=== PATIENT | male | born 1995 | race Caucasian/White ===

== ENCOUNTER 2023-01-29 13:32 | Emergency (ER) | payer MEDICAID, SELFPAY ==
[2023-01-29 13:41] VITALS: BP 146/83; PULSE 89; RESP 17; TEMP 36.8; O2SAT 97
--- NOTE | 2023-01-29 13:43 | ED.GENADUL_ITS ---
Discharge Plan Disposition Patient Disposition: Home Condition: Good Discharge Details Clinical Impression: URI (upper respiratory infection) Primary Care Provider: None,None ED Provider: Taylor Valero Discharge Instructions Instructions: Upper Respiratory Infection (ED) Additional Instructions: As we discussed, your exam is reassuring here today. This is likely a viral illness. Please continue to encourage hydration. Tylenol and ibuprofen as needed for discomfort. Please try to cut back on how much ibuprofen you are using as this may be contributing to some of your acid reflux and stomach discomfort. You may continue with the omeprazole and augment with Mylanta as needed for symptomatic relief. Please follow-up with primary care in 1 week for reevaluation. Please wash your hands and wear mask when out to help prevent spread of illness. If you develop any new or worsening symptoms please seek care urgently once again. Stand Alone Forms: Work Release Medical Decision Making Patient is a pleasant 27 year old male presenting today with c/c of sore throat, nasal congestion, cough, that began 2 days ago. While he felt warm at home he denies fevers. No SOB, CP. Has enlarged lymphnodes. Reports he ahs poor dentition, scheduled to see dentist but denies increased dental pain. No sinus pain. No GI upset. Reports general malaise. On exam, patient appears nontoxic. Posterior oropharynx is erythematous but no signficant swelling. Rapid strep negative. Submandibular lymphadenopathy. No tracheal deviation, no lymphadenopathy at cervical region. Lungs are clear, normal cardiac exam. Normal ear exam, he did report left sided ear pain. Advised likely viral URI. No evidence of bacterial infection at this point. Appears well hydrated. He also reports that his acid reflux has been increased, particularly with spicy or acidic foods. He has started omeprazole 2 days ago. He has been on 800mg Ibuprofen 3-4x per day per his dentist. Advised that he cut back, may use APAP. Will give dose of mylanta to help with acute discomfort. We discussed supportive care and I encouraged close f/u with PCP. Work note given. Encouraged hydration. All of his quesitons and concerns were addressed, he is in agreement with this plan. HPI General Date/Time Provider Initiated Documentation: 01/29/23 13:42 . Limitations to Documentation: no limitations . Information obtained by: patient and RN notes reviewed . History of Present Illness 27 year old M presents to the emergency department with the chief complaint of sore throat, congestion, cough, sore lymphnodes, described as mild, with intensity rated at 2. Quality is described as aching, and is localized to the neck (sore throat). Patient started experiencing this day(s) (2) and it has been constant. No relieving factors improve symptom(s), No exacerbating factors reported . Patient notes cough and malaise; denies chest pain, fever/chills, loss of appetite, nausea/vomiting, rash and shortness of breath. Patient did receive the following treatments prior to arrival, none Review of Systems Constitutional Constitutional: Reports as per HPI and Denies headache(s) Eyes Eyes: Reports as per HPI, Denies eye discharge and Denies irritation ENT Ears, Nose, Mouth, and Throat: Reports as per HPI and Denies headache(s) Cardiovascular Cardiovascular: Reports as per HPI, Denies chest pain and Denies dyspnea Respiratory Respiratory: Reports as per HPI and Denies dyspnea Gastrointestinal Gastrointestinal: Reports as per HPI, Denies abdominal pain, Denies change in bowel habits, Denies nausea and Denies vomiting Integumentary/Breasts Skin/Breast: Reports as per HPI and Denies rash Neurologic Neurologic: Reports as per HPI and Denies headache(s) PFSH All Active Problems (Updated 01/29/23 @ 15:48 by ULYSSES Garnica) URI (upper respiratory infection) (Acute) Social History Smoking/Tobacco Use Status: Current every day Tobacco Type: cigarettes Smoking risk assessment performed?: Yes Alcohol Intake: current Alcohol Intake frequency: holidays/special occasions only Substance use type: marijuana Housing: apartment Exam Const General: cooperative, healthy appearing, comfortable, no acute distress, well developed and well groomed Nutritional Appearance: average body habitus and well nourished Orientation: alert and awake [facility] Head: normal to inspection, normocephalic and atraumatic Ears: hearing grossly normal bilaterally, external ears normal and TM's normal bilaterally General nose exam: external nose normal and nares normal Face and sinus: normal facial exam, sinuses nontender and face symmetric Mouth: oral mucosae normal, lip normal, tongue normal, oropharynx normal and moist mucous membranes Teeth and gingiva: caries and poor dentition (no evidence of acute infection) Throat: posterior oropharynx abnormal (erythematous), tonsils normal and uvula midline Eyes General: appearance normal, both eyes and all related structures Neck Neck: normal visual inspection, full ROM, no meningeal signs and lymphadenopathy (submandibular) Resp Effort & Inspection: normal respiratory effort, able to speak in complete sentences and no respiratory distress Auscultation: clear to auscultation bilaterally, no rales, no rhonchi and no wheezes Cardio Rate: regular rate Rhythm: regular rhythm Heart Sounds: S1 normal and S2 normal Skin General skin exam: no rashes or lesions noted Neuro General: patient alert and patient awake Cognition: normal cognition Speech: speech normal Gait: normal gait
[2023-01-29] MEDS: Mylanta Suspension 30 ML CUP PO (15:28)
[2023-01-29 15:56] VITALS: BP 146/70; PULSE 78; RESP 18; TEMP 37.1; O2SAT 97
== END 2023-01-29 15:57 | disposition home or self-care (01) ==
PROVIDERS: Emergency Provider Physician Assistant
DX: J06.9 Acute upper respiratory infection, unspecified (principal)
CPT/HCPCS: 99283; 87081

== ENCOUNTER 2023-02-02 14:56 | Emergency (ER) | payer MEDICAID, SELFPAY ==
[2023-02-02 15:07] VITALS: BP 140/93; PULSE 85; RESP 18; TEMP 37.1
--- NOTE | 2023-02-02 15:15 | DI.RAD_ITS ---
Exam(s) XR CHEST 2V PA LATERAL EXAM: XR CHEST 2V PA LATERAL CLINICAL HISTORY: cough SOB TECHNIQUE: 2D digital imaging was performed. COMPARISON: No exams were available for comparison FINDINGS: HEART: Normal size. Aorta: Not dilated. PULMONARY VASCULATURE: Normal. LUNGS: Clear. PLEURAL SPACE: No pleural effusion or pneumothorax. BONE:Unremarkable for age. IMPRESSION: No acute abnormality. DATA REPOSITORY: RADIATION DOSE DELIVERED:
--- NOTE | 2023-02-02 15:21 | ED.GENADUL_ITS ---
Discharge Plan Disposition Patient Disposition: Home Condition: Good Discharge Details Clinical Impression: Abdominal pain of unknown etiology, Nausea vomiting and diarrhea Primary Care Provider: None,None ED Provider: Augusto Acosta Meds and New Rx's Prescriptions: New ondansetron 4 mg tablet,disintegrating 4 mg PO Q6H PRNQty: 10 0RF Continued buprenorphine-naloxone [Suboxone] 8-2 mg Film 2 film BUCCAL DAILY Rx Instructions: place 1 film on inside of (each) cheek Discharge Instructions Instructions: Acute Nausea and Vomiting (ED), Abdominal Pain (ED) Additional Instructions: You were seen in the ED for right upper quadrant abdominal pain with associated vomiting, diarrhea, fever. Your work-up is unrevealing and reassuring. Laboratory studies, urinalysis, ultrasound, CAT scan are all without acute findings. Rest and stick with a bland diet over the weekend. Hydrate. Prescription for ondansetron to help with recurrent nausea and vomiting sent to pharmacy. You may take ibuprofen or acetaminophen for pain. Follow-up with primary care next week. Return to the ED if you have persistent vomiting, bloody diarrhea, new or worsening pain, other concerns. Medical Decision Making Patient presenting to ED with right upper quadrant abdominal pain and tenderness with associated vomiting and some diarrhea. Fever this afternoon. He is quite tender in the right upper quadrant raising the possibility of acute krissy cystitis. He reports some dysuria but has no CVAT but will need to check urinalysis. Does report a mild cough and shortness of breath but has no focal findings on lung exam just some faint diffuse wheezing. Will place IV and start fluids, give ketorolac for pain. Laboratory studies sent. Chest x-ray and right upper quadrant ultrasound ordered. 17: 00 - Patient's laboratory studies are unremarkable. He has a normal white count, normal liver function, normal lipase. Urinalysis does not appear infected. Chest x-ray per my review is normal. Right upper quadrant ultrasound per radiology also normal. Patient reportedly very tender on exam during ultrasound but no ultrasound findings consistent with cholecystitis. We will obtain fluvid and proceed with CT of the abdomen pelvis. 18:00 - Patient's Fluvid is negative. CT scan per radiology read is normal. Unclear etiology of symptoms but does not appear to have surgical problem and no emergent condition at this time. Will prescribe Zofran for recurrent N/V, bland diet, rest over weekend and follow up with PCP next week if not improving. Return precautions provided. Lab Data Lab results reviewed: Yes I reviewed the patient's lab results. HPI General Mode of arrival: ambulatory . Date/Time Provider Initiated Documentation: 02/02/23 15:21 . Limitations to Documentation: no limitations . Information obtained by: patient . HPI Narrative: Patient presents to ED referred to us from urgent care with upper abdominal pain, vomiting, diarrhea and this afternoon fever. Patient reports 5 days of right upper abdominal pain with some radiation to the left side and definite radiation into the back. There is a constant pain but it waxes and wanes in t erms of intensity. He has associated vomiting as well as some diarrhea. Today spiked a fever to 102. He does have a little bit of a cough and some mild shortness of breath. He is a smoker. Denies any chest pain though occasionally feels pain radiating from the right upper quadrant into the chest. He has dark urine and may be a little bit of dysuria. Denies any previous abdominal surgeries. Related Data Home Medications Medication Instructions Recorded Confirmed buprenorphine 8 mg-naloxone 2 mg 2 film buccal DAILY 02/02/23 02/02/23 sublingual film (Suboxone) ondansetron 4 mg disintegrating 4 mg PO Q6H PRN #10 tabs 02/02/23 tablet Previous Rx's Medication Instructions Recorded ondansetron 4 mg disintegrating 4 mg PO Q6H PRN #10 tabs 02/02/23 tablet Allergies Allergy/AdvReac Type Severity Reaction Status Date / Time No Known Allergies Allergy Unverified 02/02/23 15:10 General Stated Complaint: Abd Prob DUNG: 3 Review of Systems Narrative: Per HPI PFSH All Active Problems (Updated 02/02/23 @ 17:56 by Augusto Acosta MD) Abdominal pain of unknown etiology (Acute) Nausea vomiting and diarrhea (Acute) URI (upper respiratory infection) (Acute) Medical History No significant past medical history Surgical History No significant past surgical history Social History Smoking/Tobacco Use Status: Current every day Tobacco Type: cigarettes Smoking risk assessment performed?: Yes Alcohol Intake: current Alcohol Intake frequency: holidays/special occasions only Drug use: Daily Substance use type: former substance user and marijuana Housing: other Do you feel safe at home: Yes Do you feel safe in your relationship?: Yes Exam Narrative Exam Narrative: Const: WDWN male in NAD. HEENT: NC/AT. Normal facial exam. Eyes: Normal conjunctiva and sclera. Neck: Supple. Trachea midline. Lungs: Normal respiratory effort. Lungs with faint diffuse wheeze. Cor: RRR without murmur/gallop. Good radial pulses. GI: Soft and ND. Tender in the RUQ with voluntary guarding. Back: No CVAT Neuro: A+O x 3. Normal speech, mentation, gait. Cranial nerves II - XII grossly intact. No gross motor or sensory deficit. Ext: No C/C/E. Skin: Warm and dry without rash. Course Vital Signs Vital signs: Vital Signs Temperature 98.7 F 02/02/23 15:07 Pulse 85 02/02/23 15:07 Respiratory Rate 18 02/02/23 15:07 Blood Pressure 140/93 H 02/02/23 15:07 Temperature 98.7 F 02/02/23 15:07 Temperature Source Oral 02/02/23 15:07 Pulse 85 02/02/23 15:07 Respiratory Rate 18 02/02/23 15:07 Blood Pressure 140/93 H 02/02/23 15:07 Blood Pressure Position Sitting 02/02/23 15:07 Pain Level 7 02/02/23 15:07
--- NOTE | 2023-02-02 15:26 | DI.US_ITS ---
Exam(s) US ABDOMEN LIMITED EXAM: US ABDOMEN LIMITED CLINICAL HISTORY: RUQ pain/tenderness/fever TECHNIQUE: Ultrasound abdomen performed using standard protocol. COMPARISON: No exams were available for comparison FINDINGS: LIVER: Normal size. Normalechogenicity. No focal liver lesions are seen.. GALLBLADDER: No evidence of cholelithiasis. No evidence of wall thickening. No pericholecystic fluid identified. ALEGRE'S SIGN: Negative. BILIARY SYSTEM: No intrahepatic or extrahepatic biliary ductal dilation. RIGHT KIDNEY: Normal size. No evidence of renal calculi. No evidence of hydronephrosis. No suspicious renal mass. No cyst identified. PANCREAS: Normal where visualized. Partially obscured by bowel gas. ABDOMINAL AORTA AND IVC: Visualized portions normal caliber. ASCITES: None seen. IMPRESSION: Normal sonographic appearance of the right upper quadrant. DATA REPOSITORY:
[2023-02-02] MEDS: Lactated Ringers 1,000 ML 1000 ML IV (15:46)
[2023-02-02] MEDS: Ketorolac 30 MG/ML VIAL IVP (15:46)
[2023-02-02 15:48] LABS: Abs Immature Grans 0.02 10^3/uL (0.0-0.06); HCT 50.4 % (40.0-50.0); HGB 17.2 g/dL (13.5-17.5); MCH 30.7 pg (27.0-33.0); MCHC 34.1 % (32.0-36.0); MCV 90 fL (80-95); MPV 9.7 fL (8.0-11.0); Platelet Count 288 10^3/uL (130-400); RDW 12.8 % (11.8-14.1); RDW-SD 42.4 fL; WBC 7.34 10^3/uL (4.4-10.8)
[2023-02-02 15:49] LABS: Bilirubin Small (Negative); Blood Negative (Negative); Clarity Clear (Clear); Glucose Negative (Negative); Ketones 40 mg/dL (Negative); Leukocyte Esterase Negative (Negative); Nitrite Negative (Negative); Specific Gravity >= 1.030 (1.005-1.025); Urobilinogen 0.2 mg/dL (Up to 0.2); pH 5.5 (5-8)
[2023-02-02 16:03] LABS: ALT 27 U/L (16-63); AST 18 U/L (15-37); Albumin 4.6 g/dL (3.4-5.0); Alkaline Phosphatase 91 U/L (46-116); Anion Gap 10.8 mmol/L (3-11); BUN 14 mg/dL (7-18); Bilirubin, Total 0.7 mg/dL (0.2-1.0); CO2 28.2 mmol/L (21.0-32.0); CREATININE 0.8 mg/dL (0.70-1.30); Chloride 104 mmol/L (98-107); Estimated GFR 125.95 (mL/min/1.73m2); Glucose 89 mg/dL (74-106); Lipase 12 U/L (16-77); Sodium 143 mmol/L (136-145); Total Protein 8.8 g/dL (6.4-8.2)
[2023-02-02 16:22] LABS: Absolute Eosinophil Count 0.15 10^3/uL (0.0-0.7); Absolute Lymphocyte Count 2.13 10^3/uL (1.2-3.4); Absolute Monocyte Count 0.22 10^3/uL (0.1-0.8); Absolute Neutrophil Count 4.84 10^3/uL (1.2-6.7); Atypical Lymphocytes % 5; Bands % 4
[2023-02-02 16:23] LABS: Diff Comment Manual Differential; RBC Morphology Normal
[2023-02-02 16:29] LABS: Bacteria Rare HPF (Negative); C & S Indicated? Yes; Crystals Negative HPF (Negative); Epithelial Cells Rare HPF (Negative); Mucus Heavy (Negative); RBC 0-2 HPF (0-2); WBC 0-2 HPF (0-5)
--- NOTE | 2023-02-02 16:45 | DI.CT_ITS ---
Exam(s) CT ABDOMEN PELVIS W EXAM: CT ABDOMEN PELVIS W CLINICAL HISTORY: abdominal pain and fever. TECHNIQUE: Imaging Protocol: Axial computed tomography images with coronal and sagittal reformatted images were created and reviewed CONTRAST MATERIAL: Intravenous: Omnipaque 350 Contrast volume:100 ml Oral: / no COMPARISON: No exams were available for comparison FINDINGS: ABDOMEN: Lung Bases: Normal where visualized. Liver: Mildly enlarged. Mild hepatic steatosis. No measurable mass. Gallbladder and biliary tract: No radiodense calculus or dilation. Pancreas: Normal density, no abnormal calcifications or inflammatory process. Spleen: Normal. Kidneys: Normal size, contour and axis. No radiodense stones or obstructive uropathy. No suspicious m asses seen. Adrenal glands: No masses seen. Abdominal Aorta: Abdominal portion non-dilated. Soft tissues: Unremarkable. PELVIS: Bladder: Nearly empty. No gross wall thickening. No calculi. Bowel: No obstruction. Normal quantity of stool. No bowel wall thickening. Ingested tablets in the colon. Appendix normal. Peritoneal cavity: No ascites, collection or mesenteric inflammatory response. Bones: Unremarkable for age. Reproductive organs: Within normal limits. Lymph nodes: Unremarkable. Impression: Unremarkable CT scan of the abdomen and pelvis. RADIATION DOSE DELIVERED: 1,103.88mGy.cm Total DLP DATA REPOSITORY: All CT scans at this facility are submitted to the National Radiology Data Registry (NRDR) Dose Index Registry (DIR) with the [employer] (A[employer]). RADIATION OPTIMIZATION: All CT scans at this facility use at least one of these dose optimization te chniques: automated exposure control; mA and/or kV adjustment per patient size (includes targeted exa ms where dose is matched to clinical indication); or iterative reconstruction.
[2023-02-02] MEDS: Normal Saline Flush 10 ML SYR IVP (17:04)
[2023-02-02] MEDS: Normal Saline - Diluent 50 ML VIAL IJ (17:14)
[2023-02-02] MEDS: Omnipaque 350 MG/ML 100 ML BTL IJ (17:15)
[2023-02-02 17:42] LABS: COVID-19 PCR Negative (Negative); Influenza A PCR Negative (Negative); Influenza B PCR Negative (Negative); RSV PCR Negative (Negative); Source Nasopharynx
[2023-02-02 18:05] VITALS: BP 138/81; PULSE 59; RESP 16; O2SAT 100
== END 2023-02-02 18:15 | disposition home or self-care (01) ==
PROVIDERS: Emergency Provider Emergency Medicine
DX: R10.11 Right upper quadrant pain (principal); R11.2 Nausea with vomiting, unspecified; R19.7 Diarrhea, unspecified
CPT/HCPCS: 36415; 80053; 83690; 87637; 96361; 96374; 99285; 71046; 74177; 76705; 81003; 81015; 83735; 85025; 87086; 99284; J1885; J3490